=== PATIENT | male | born 1995 | race Caucasian/White ===

== ENCOUNTER 2023-02-24 11:21 | Emergency (ER) | payer OTHER, SELFPAY ==
[2023-02-24 11:40] VITALS: BP 137/96; PULSE 77; RESP 18; TEMP 36.6; O2SAT 100
--- NOTE | 2023-02-24 11:41 | ED.SKABFB ---
HPI - Skin/Abscess/Foreign Bdy General Chief complaint: Skin/Abscess/Foreign Body Stated complaint: Allergic reaction Source: patient and RN notes reviewed History of Present Illness HPI narrative: 27 yo M presents to urgent care with complaints of an allergic reaction. Pt states on Thursday, he at [employer] for the first time and then went to take a nap. Pt states about 30 min-1 hour after eating the fruit, he broke out in hives. Pt states he took some Benadryl and had moderate relief. Pt then broke out again last night at work. Pt reports bilateral hand swelling and right ankle swelling. Pt denies any fevers, chills, vomiting, chest pain, or SOB. Denies any oral swelling. Last dose of Benadryl was about 1 am today. Review of Systems Review of Systems: CONSTITUTIONAL: Denies fever, chills, or sweats. EYES: Denies visual changes, redness, or discharge. ENT: Denies otalgia and sore throat CARDIOVASCULAR: Denies chest pain, palpitations, or edema. RESPIRATORY: Denies cough or dyspnea. GASTROINTESTINAL: Denies abdominal pain, nausea, vomiting, or diarrhea. GENITOURINARY: Denies dysuria or hematuria. SKIN: itching and rash MUSCULOSKELETAL: swollen hands NEUROLOGIC: tingling hands Pertinent positives per HPI. PMFSH Comments At the time of my signature, I reviewed and agree with the nursing past medical, surgical, social, and family history. There is no relevant family history pertinent to the patient complaint. Exam Narrative: GENERAL: This is a well-nourished, well-developed patient, in no apparent distress. HEAD: normocephalic, atraumatic. EYES: Sclera clear/white. Vision is grossly intact. EARS: External ears normal, auditory canals clear and without drainage. Hearing grossly intact. NOSE: External nose normal with no obvious nasal discharge, nares without redness, no rhinorrhea. THROAT: Mucous membranes moist, posterior pharynx clear. NECK: Neck supple, non-tender without lymphadenopathy, masses or thyromegaly. CARDIOVASCULAR: Regular rate and rhythm without murmurs, gallops, or rubs. RESPIRATORY: Clear to auscultation. Breath sounds equal bilaterally. No wheezes, rales, or rhonchi. GASTROINTESTINAL: Abdomen soft, non-tender, nondistended. Bowel sounds are active. No hepato-splenomegaly, or palpable masses. No guarding. SKIN: darker erythremia to lower legs. mild erythremia to bilateral upper arms. no hives noted. NEURO: awake, alert, and oriented to person, place and time. There were no obvious focal neurologic abnormalities. EXTREMITIES: Swelling left lateral ankle, non-tender, full ROM. Mild edema to bilateral hands, non-tender. BACK: Nontender without deformity or crepitus. No flank tenderness. Course Course Level of Care: Express Care Visit Vital Signs Vital signs: reviewed MDM - Skin/Abscess/Foreign Bdy MDM Narrative Medical decision making narrative: Take the steroids as directed. Take Benadryl 25 mg-50 mg every 6 hours if needed for itching. Go the ER with any new or worsening symptoms. Differential Diagnosis Differential diagnosis: Likely viral exanthem, urticaria and contact dermatitis Critical Care Time Critical Care Time Critical Care Time: No Discharge Plan Discharge Clinical Impression: Allergic reaction Qualifiers: Encounter type: initial encounter Qualified Code(s): T78.40XA - Allergy, unspecified, initial encounter Patient Disposition: Home, Self-Care Condition: Stable Instructions: General Allergic Reaction (ED) Additional Instructions: Take the steroids as directed. Take Benadryl 25 mg-50 mg every 6 hours if needed for itching. Go the ER with any new or worsening symptoms. Prescriptions: New prednisone 20 mg tablet 40 mg PO DAILY 5 Days Qty: 10 0RF Follow-up/Referrals: PHYSICIAN NOT ON STAFF,NONSTAFF [Primary Care Provider] - Stand Alone Forms: Work/School Release IP Time of Disposition: 11:53
[2023-02-24] MEDS: predniSONE 20 MG TABLET 60 MG PO (11:50)
== END 2023-02-24 11:54 | disposition home or self-care (01) ==
PROVIDERS: Emergency Provider Nurse Practitioner Family
DX: T78.40XA Allergy, unspecified, initial encounter (principal); L53.9 Erythematous condition, unspecified; M25.472 Effusion, left ankle; R22.33 Localized swelling, mass and lump, upper limb, bilateral
CPT/HCPCS: 99213; G0463; J7512

== ENCOUNTER 2024-05-03 10:26 | Emergency (ER) | payer SELFPAY ==
--- NOTE | ~2024-05-03 | XR_ITS ---
Left ankle Technique: AP, oblique, and lateral views were obtained. Clinical History: Pain Findings: No acute fracture or dislocation is seen. Osseous alignment is anatomic. Distal tibial bone island noted. Ankle mortise and other visualized joint spaces are preserved. Soft tissues are other medina unremarkable. Impression: Unremarkable left ankle. Reviewed, dictated and finalized at location . Impression: Unremarkable left ankle.
[2024-05-03 10:39] VITALS: BP 145/95; PULSE 70; RESP 16; TEMP 36.6; O2SAT 100
--- NOTE | 2024-05-03 10:48 | ED.LOWEXIN ---
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 Patient reports that he had eversion of his left foot with pain to lateral ankle region, no acute swelling or bruising noted at this time,is able to ambulate on left foot full weight bearing. Patient reports increased pain to his left foot when he dorsiflexes his left foot. Patient reports prior ligament injuries to bilateral ankles when he was adolescent/young adult. MD complaint: ankle injury Onset (ago): hour(s) (this morning) Injury: Left: ankle (eversion of left ankle) Type of Injury: eversion Severity scale (1-10): 4 Exacerbating factors: movement (dorsiflexion) Treatments prior to arrival: other (none) Related Data Home Medications Medication Instructions Recorded Confirmed No Home Medications 05/03/24 05/03/24 Allergies Allergy/AdvReac Type Severity Reaction Status Date / Time No Known Allergies Allergy Verified 05/03/24 11:02 Review of Systems Review of Systems: CONSTITUTIONAL: Denies fever, chills, or sweats. EYES: Denies visual changes, redness, or discharge. ENT: Denies rhinorrhea, congestion, sore throat, or otalgia. CARDIOVASCULAR: Denies chest pain, palpitations, or edema. RESPIRATORY: Denies cough or dyspnea. GASTROINTESTINAL: Denies abdominal pain, nausea, vomiting, or diarrhea. GENITOURINARY: Denies dysuria or hematuria. SKIN: Denies rash or itching. MUSCULOSKELETAL: Denies back pain,positive for left lateral ankle joint pain, or myalgia. NEUROLOGIC: Denies headache, numbness, or weakness. PSYCHIATRIC: Denies anxiety or depression. All systems reviewed & are unremarkable except as noted in HPI and below [facility] Social History Social History (Updated 05/04/24 @ 09:58 by Belkis Oh NP) Smoking status: Never smoker Alcohol intake: current Alcohol use details: social Substance use type: does not use Living arrangements: with family Gender identity (if verbalized by the patient): Male Comments At time of signature, agree with nursing past medical, surgical, social and family history. There is no relevant family history pertinent to the presenting complaint Exam Narrative: GENERAL: Well-appearing, well-nourished, and in no acute distress. HEAD: Normocephalic, atraumatic. EYES: PERRLA and EOMI. ENT: Nares clear, no rhinorrhea or epistaxis. Mucous membranes moist. NECK: Supple. no lymphadenopathy CHEST: Clear to auscultation. No respiratory distress.SAO2 100% on room air HEART: Regular rate and rhythm. No murmur heard. Normal peripheral pulses. ABDOMEN: Soft, nontender, nondistended, normal active bowel sounds. EXTREMITIES: Normal range of motion. No edema. Reports injury to his left lateral ankle with discomfort increased with dorsiflexion, no acute swelling redness or bruising noted to lateral ankle, able to bear weight to foot, concerned since states bilateral ligament injuries to ankles during adolescent and young adult years wants to see ortho for follow up. Patient has strong pedal pulse to left foot reports no tingling or numbness. to his left foot. SKIN: Warm, dry, no rash. NEURO: No focal deficits. Alert and oriented x3. Course Course Emergency Course: Patient is aware of diagnosis, understands and agrees to treatment plan.? Anticipatory guidance given.? Patient agrees to follow-up as directed and is aware of reasons to seek care at the emergency department. Portions of this record may have been created with voice recognition software Level of Care: Express Care Visit Vital Signs Vital si
== END 2024-05-03 11:46 | disposition home or self-care (01) ==
PROVIDERS: Emergency Provider Registered Nurse
DX: S93.402A Sprain of unspecified ligament of left ankle, initial encounter (principal); S96.912A Strain of unspecified muscle and tendon at ankle and foot level, left foot, initial encounter; X50.9XXA Other and unspecified overexertion or strenuous movements or postures, initial encounter
CPT/HCPCS: 73610; 99213; G0463